=== PATIENT | male | born 1945 ===

== ENCOUNTER 2017-03-16 09:09 | Day surgery (SDC) | payer OTHER ==
[~2017-03-16 09:09] MED LIST: AMOX1TAB12 PO; BACTROBAN22 GM TP; DICY20TA PO; GAS RELIEF125 M1 PO; INTESTINEX1 CA1 PO; PANTOPRAZOLE SO40 MG PO; TRAMADOL HCL-AP1 TAB PO
== END 2017-03-16 14:55 | disposition home or self-care (01) ==
LOC: AMB-ENDOS 09:09
DX: D12.0 Benign neoplasm of cecum (principal); K64.8 Other hemorrhoids; K57.30 Diverticulosis of large intestine without perforation or abscess without bleeding

== ENCOUNTER 2017-08-04 10:22 | Inpatient (IN) | payer OTHER ==
[~2017-08-04] VITALS: Ht 165.1 cm; Wt 90.7 kg
[2017-08-04] MEDS ORDERED: COZAAR25 MG PO (10:51)
[2017-08-04] MEDS ORDERED: SYNTHROID88 MCG PO (10:51)
[2017-08-04] MEDS ORDERED: GABAPENTIN300 MG PO (10:52)
[2017-08-04] MEDS ORDERED: FENOFI PO (10:52)
[2017-08-04] MEDS ORDERED: ALLOPURINOL PO (10:53)
[2017-08-04] MEDS ORDERED: SINGULAIR10 MG PO (10:53)
[2017-08-04] MEDS ORDERED: PANTOPRAZOLE SO40 MG PO (10:54)
[2017-08-04] MEDS ORDERED: ACID CONTROLLER20 MG PO (10:54)
[2017-08-04] MEDS ORDERED: OPTIMAL D350000 UNIT PO (10:55)
[2017-08-04] MEDS ORDERED: FLUTICASONE PO (10:55)
[2017-08-11] MEDS ORDERED: DOCUSATE SODIU100 MG PO (07:56)
[2017-08-11] MEDS ORDERED: PERCOCET 5-3251 EACH PO (07:58)
[2017-08-11] MEDS ORDERED: CLONAZEPAM1 MG PO (07:58)
== END 2017-08-11 14:13 | disposition home or self-care (01) | DRG 454 ==
LOC: PED 08-10 04:05 → O/R 08-10 04:05 → SURH 08-10 05:15 → O/R 08-10 15:37 → PED 08-10 15:37
PROVIDERS: Orthopaedic Surgery Orthopaedic Surgery of the Spine
PROC: 0RG2071 Fusion of 2 or more Cervical Vertebral Joints with Autologous Tissue Substitute, Posterior Approach, Posterior Column, Open Approach (ICD-10-PCS; 2017-08-10)
PROC: 0RT30ZZ Resection of Cervical Vertebral Disc, Open Approach (ICD-10-PCS; 2017-08-10)
PROC: 07DS3ZZ Extraction of Vertebral Bone Marrow, Percutaneous Approach (ICD-10-PCS; 2017-08-10)
PROC: 0RG20A0 Fusion of 2 or more Cervical Vertebral Joints with Interbody Fusion Device, Anterior Approach, Anterior Column, Open Approach (ICD-10-PCS; principal; 2017-08-10 05:15)
DX: M50.01 Cervical disc disorder with myelopathy, high cervical region (principal); M47.12 Other spondylosis with myelopathy, cervical region; I10 Essential (primary) hypertension; E03.8 Other specified hypothyroidism